=== PATIENT | female | born 1990 | race Caucasian/White ===

== ENCOUNTER 2017-02-24 12:40 | Emergency (ER) | payer BC ==
[~2017-02-24] VITALS: Ht 162.6 cm; Wt 128.0 kg
[2017-02-24 13:39] LABS: MCH 28.1 PG (29.0-34.0); MCHC 32.4 G/DL (30.0-36.0); MCV 86.8 FL (83-99); MEAN PLAT.VOLUME 10.4 uM^3 (9.5-12.4); PLATELET COUNT 310 K/uL (156-360); RBC DIS.WIDTH-CV 13.5 % (11.8-14.6); RBC DIS.WIDTH-SD 42.6 % (39-53); RED BLOOD COUNT 4.84 M/uL (3.80-5.20); WHITE BLOOD COUNT 9.3 K/uL (4.1-10.2)
[2017-02-24 13:51] LABS: ADD MIUA? YES; BILIRUBIN NEGATIVE; BLOOD LARGE; COLOR YELLOW ((YELLOW)); GLUCOSE (STRIP) NEGATIVE; KETONES NEGATIVE; LEUKOCYTES MODERATE; NITRITE NEGATIVE; PROTEIN (STRIP) NEGATIVE; UROBILINOGEN 0.2 MG/DL (0.2-1.0)
[2017-02-24 13:51] LABS: CHLORIDE 109 mEq/L (99-109); SODIUM 138 mEq/L (136-147)
[2017-02-24 13:53] LABS: GLUCOSE 90 mg/dL (70-99)
[2017-02-24 13:54] LABS: ANION GAP 10 MEQ/L (2-14)
[2017-02-24 13:55] LABS: TOTAL BILIRUBIN 0.6 mg/dL (0.0-1.0)
[2017-02-24 13:57] LABS: ALKALINE PHOSPHATASE 77 IU/L (3-129)
[2017-02-24 13:58] LABS: UREA NITROGEN (BUN) 8 mg/dL (9-23)
[2017-02-24 14:01] LABS: GFR ESTIMATE (CALCULATED) > 59 mL/min/
[2017-02-24 14:04] LABS: BACTERIA RARE /HPF; EPITHELIAL CELLS RARE /HPF; MUCUS NONE SEEN /LPF; RED BLOOD CELLS TNTC /HPF (0-5); UCUL ADDED? NO
[2017-02-24 14:06] LABS: QUANTITATIVE HCG < 4.0 MIU/ML
[2017-02-24 15:24] LABS: LIPASE 18 U/L (1.0-51.0)
[2017-02-24 17:35] VITALS: BP 130/81
== END 2017-02-24 17:39 | disposition home or self-care (01) ==
LOC: EME 12:40
DX: N83.202 Unspecified ovarian cyst, left side (principal); N94.6 Dysmenorrhea, unspecified
CPT/HCPCS: 74177; 80053; 81003; 83690; 84702; 85027; 99281; 99285; J1885; J2405; J7030